=== PATIENT | male | born 1970 | race Caucasian/White ===

== ENCOUNTER 2020-05-03 09:28 | Outpatient (CLI) | payer BC, SELFPAY ==
[2020-05-03 10:17] LABS: Alanine Aminotransferase 44 U/L (4-50); Albumin Level 4.7 g/dL (3.5-5.1); Alkaline Phosphatase 79 U/L (38-126); Anion Gap 6 mmol/L (8-16); Aspartate Amino Transferase 38 U/L (17-59); Bilirubin,Total 0.5 mg/dL (0.2-1.3); Blood Urea Nitrogen 12 mg/dL (9-20); Calcium 9.3 mg/dL (8.4-10.2); Carbon Dioxide 27 mmol/L (22-30); Chloride 106 mmol/L (98-107); Cholesterol 200 mg/dL (0-200); Estimated Glomerular Filt Rate > 60; Glucose 110 mg/dL (75-110); HDL Direct 42 mg/dL; Potassium 4.4 mmol/L (3.4-5.0); Sodium 139 mmol/L (137-145); Triglycerides 183 mg/dL (<150)
[2020-05-03 10:29] LABS: LDL Cholesterol Direct 127 mg/dL
== END 2020-05-03 09:29 | disposition home or self-care (01) ==
PROVIDERS: PCP Internal Medicine; Visit Provider Internal Medicine
DX: E78.5 Hyperlipidemia, unspecified (principal)
CPT/HCPCS: 36415; 80053; 80061

== ENCOUNTER → 2020-11-19 02:29 | Outpatient (CLI) | payer BC, SELFPAY ==
[2020-11-19 20:47] LABS: SARS-CoV-2 RNA PCR Negative
== END ==
PROVIDERS: PCP Internal Medicine; Visit Provider Internal Medicine
DX: R68.89 Other general symptoms and signs (principal); Z20.822 Contact with and (suspected) exposure to COVID-19
CPT/HCPCS: C9803; U0003; U0005

== ENCOUNTER 2020-12-06 09:16 | Outpatient (CLI) | payer BC, SELFPAY ==
[2020-12-06 10:21] LABS: Alanine Aminotransferase 24 U/L (4-50); Albumin Level 4.8 g/dL (3.5-5.1); Alkaline Phosphatase 82 U/L (38-126); Anion Gap 10 mmol/L (8-16); Aspartate Amino Transferase 23 U/L (17-59); Bilirubin,Total 0.3 mg/dL (0.2-1.3); Blood Urea Nitrogen 17 mg/dL (9-20); Calcium 9.4 mg/dL (8.4-10.2); Carbon Dioxide 25 mmol/L (22-30); Chloride 102 mmol/L (98-107); Cholesterol 170 mg/dL (0-200); Estimated Glomerular Filt Rate > 60; Glucose 106 mg/dL (65-110); HDL Direct 52 mg/dL; Potassium 4.5 mmol/L (3.4-5.0); Sodium 137 mmol/L (137-145); Triglycerides 122 mg/dL (<150)
[2020-12-06 10:32] LABS: LDL Cholesterol Direct 106 mg/dL
== END 2020-12-06 09:17 | disposition home or self-care (01) ==
PROVIDERS: PCP Internal Medicine; Visit Provider Nurse Practitioner
DX: E78.5 Hyperlipidemia, unspecified (principal)
CPT/HCPCS: 36415; 80053; 80061

== ENCOUNTER → 2020-12-10 08:26 | Outpatient (CLI) | payer BC, SELFPAY ==
--- NOTE | ~2020-12-10 | XR_ITS ---
XR chest 2V DATE: 12/10/2020 08:39 INDICATION: Cough TECHNIQUE: 2 views COMPARISON: 07/24/2015 portable 05/28/2014 PA and lateral chest AP chest FINDINGS: Normal heart size. No hilar or mediastinal enlargement. No pulmonary infiltrate or consolidation, pleural effusion or pulmonary vascular congestion or pneumo thorax is detected. Mild degenerative change of the thoracic spine. IMPRESSION: No active cardiopulmonary disease Reviewed, dictated and finalized at location A.
== END ==
PROVIDERS: PCP Internal Medicine; Visit Provider Internal Medicine
DX: R05.9 Cough, unspecified (principal); M47.814 Spondylosis without myelopathy or radiculopathy, thoracic region
CPT/HCPCS: 71046

== ENCOUNTER 2021-12-31 08:56 | Outpatient (CLI) | payer BC, SELFPAY ==
[2021-12-31 09:26] LABS: Alanine Aminotransferase 28 U/L (6-50); Albumin Level 4.8 g/dL (3.5-5.1); Alkaline Phosphatase 87 U/L (38-126); Anion Gap 12 mmol/L (8-16); Aspartate Amino Transferase 25 U/L (17-59); Bilirubin,Total 0.5 mg/dL (0.2-1.3); Blood Urea Nitrogen 16 mg/dL (9-20); Carbon Dioxide 27 mmol/L (22-30); Chloride 101 mmol/L (98-107); Cholesterol 133 mg/dL (0-200); Estimated Glomerular Filt Rate > 60; Glucose 112 mg/dL (65-110); HDL Direct 39 mg/dL; Potassium 4.3 mmol/L (3.4-5.0); Sodium 140 mmol/L (137-145); Triglycerides 82 mg/dL (<150)
[2021-12-31 09:36] LABS: LDL Cholesterol Direct 68 mg/dL
[2021-12-31 10:13] LABS: Prostate Specific Antigen 0.5 ng/mL (< OR = 4.0)
== END 2021-12-31 08:57 | disposition home or self-care (01) ==
LOC: ANHLAB 08:57
PROVIDERS: PCP Internal Medicine; Visit Provider Internal Medicine
DX: E78.5 Hyperlipidemia, unspecified (principal); Z79.899 Other long term (current) drug therapy; Z12.5 Encounter for screening for malignant neoplasm of prostate
CPT/HCPCS: 36415; 80053; 80061; 84153; G0103

== ENCOUNTER 2022-02-09 00:44 | Day surgery (SDC) | payer BC, SELFPAY ==
[2022-01-23 15:04] VITALS: BMI 32.3
[2022-02-09 09:49] VITALS: BP 120/102; PULSE 74; RESP 18; TEMP 36.3; O2SAT 98
--- NOTE | 2022-02-09 09:49 | WPDANESEPPF ---
Anes - Initial Pre Proc Eval Procedure: Operation Date: 02/09/22 11:15 Proposed Procedures p Screening Colonoscopy - Dionisio Castano MD Date/Time: 02/09/22 09:49 Surgeon: Dionisio Castano MD Pre Op Diagnosis: neoplasm screening Patient Data Age: 51 Gender: M Height: 1.78 m Weight: 102.3 kg Allergies Allergy/AdvReac Type Severity Reaction Status Date / Time No Known Allergies Allergy Verified 02/09/22 09:47 Home Medications Medication Instructions Recorded Confirmed Type baclofen 10 mg tablet 10 mg PO QHS #90 tabs 06/27/21 01/23/22 Rx fluticasone propionate 50 2 spray intranasal DAILY #19.8 mL 06/27/21 01/23/22 Rx mcg/actuation nasal spray,suspension sildenafil 100 mg tablet 100 mg PO DAILY PRN sexual 06/27/21 01/23/22 Rx activity #30 tabs atorvastatin 20 mg tablet 20 mg PO DAILY #90 tabs 11/04/21 01/23/22 Rx albuterol sulfate 90 mcg/actuation 1 puff inhalation Q4H PRN 01/09/22 01/23/22 Rx aerosol inhaler shortness of breath or wheezing #8.5 grams escitalopram oxalate 20 mg tablet 20 mg PO DAILY #90 tabs 01/13/22 01/23/22 Rx (Lexapro) montelukast 10 mg tablet 10 mg PO DAILY #90 tabs 01/13/22 01/23/22 Rx Patient hx anesthesia problems: none Family hx anesthesia problems: none Results Review: All pre-operative results and documents have been reviewed as part of the pre-operative evaluation. [facility] Past Medical History Medical History (Updated 02/09/22 @ 09:49 by Adonis Roy MD) COVID-19 Metal plates in right arm Obesity Tobacco abuse Wrist fracture, right Surgical History Surgical History (Updated 02/09/22 @ 09:50 by Adonis Roy MD) H/O wrist surgery Social History Social History Years smoked: 26 Smoking status: Former smoker Tobacco type: cigarettes Second hand tobacco smoke exposure: No Alcohol intake: current Drinks per week: 4 Substance use: never Substance use type: does not use Lack of Transportation: No Lack of Food: Never True Current Housing: I Have Housing Concerned About Future Housing: No Difficulty Paying Gas/Electric Bills: No Difficulty Paying for Meds: No Currently Unemployed: No Education: Bachelor's Degree Difficulty w/ Childcare or Family Care: No Living arrangements: with family Spiritual care concerns: No Anes - Eval Final PreProcedure Day of Procedure 02/09/22 09:49 Patient weight: obese Heart: regular rate and rhythm Lungs: clear to auscultation Airway: Mallampati scale class II Neurological: alert and oriented Last oral intake: >/= 8 hours ASA classification: III Emergent: no Anesthetic plan: proceed Anesthesia type and monitoring: general GIVS and standard monitoring Results Review: All pre-operative results and documents have been reviewed as part of the pre-operative evaluation. Informed Consent: The patient's anesthetic plan and its attendant risks and benefits were discussed with the patient/family/POA. Questions were solicited and answers provided to the satisfaction of the patient/family/POA.
[2022-02-09] MEDS: LACTATED RINGERS 1,000 ML 150 ML IV CONT (09:57)
--- NOTE | 2022-02-09 10:40 | PM.HPGS ---
History of Present Illness History of Present Illness Consent: Risks, benefits, and alternatives have been discussed and questions answered. Patient agrees to proceed with procedure. Chief complaint: neoplasm screening Narrative: Darío Pollard is a 51 year old male here for first screening colonoscopy Review of Systems Constitutional: Constitutional: Denies headache(s) and Denies weakness Eyes: Eyes: Denies blurry vision ENT: Reports Normal hearing present, Denies headache(s) and Denies neck pain Cardiovascular: Cardiovascular: Denies chest pain and Denies dyspnea Respiratory: Respiratory: Denies dyspnea Gastrointestinal: Gastrointestinal: Reports no additional gastrointestinal complaints Genitourinary: Genitourinary: Denies dysuria Musculoskeletal: Musculoskeletal: Denies neck pain Integumentary/Breasts: Skin/Breast: Denies dry skin Neurologic: Reports Normal hearing present, Denies headache(s) and Denies weakness Psychiatric: Psychiatric: Denies anxiety Endocrine: Endocrine: Denies change in body appearance Hematologic/Lymphatic: Hematologic/Lymphatic: Denies easy bleeding Allergic/Immunologic: Allergic/Immunologic: Denies urticaria PMF Past Medical History Medical History (Updated 02/09/22 @ 10:41 by Dionisio Castano MD) Colon cancer screening COVID-19 Metal plates in right arm Obesity Tobacco abuse Wrist fracture, right Surgical History Surgical History (Updated 02/09/22 @ 09:50 by Adonis Roy MD) H/O wrist surgery Social History Social History Years smoked: 26 Smoking status: Former smoker Tobacco type: cigarettes Second hand tobacco smoke exposure: No Alcohol intake: current Drinks per week: 4 Substance use: never Substance use type: does not use Lack of Transportation: No Lack of Food: Never True Current Housing: I Have Housing Concerned About Future Housing: No Difficulty Paying Gas/Electric Bills: No Difficulty Paying for Meds: No Currently Unemployed: No Education: Bachelor's Degree Difficulty w/ Childcare or Family Care: No Living arrangements: with family Spiritual care concerns: No Meds Home Medications and Allergies Home Medications Medication Instructions Recorded Confirmed Type baclofen 10 mg tablet 10 mg PO QHS #90 tabs 06/27/21 01/23/22 Rx fluticasone propionate 50 2 spray intranasal DAILY #19.8 mL 06/27/21 01/23/22 Rx mcg/actuation nasal spray,suspension sildenafil 100 mg tablet 100 mg PO DAILY PRN sexual 06/27/21 01/23/22 Rx activity #30 tabs atorvastatin 20 mg tablet 20 mg PO DAILY #90 tabs 11/04/21 01/23/22 Rx albuterol sulfate 90 mcg/actuation 1 puff inhalation Q4H PRN 01/09/22 01/23/22 Rx aerosol inhaler shortness of breath or wheezing #8.5 grams escitalopram oxalate 20 mg tablet 20 mg PO DAILY #90 tabs 01/13/22 01/23/22 Rx (Lexapro) montelukast 10 mg tablet 10 mg PO DAILY #90 tabs 01/13/22 01/23/22 Rx Allergies Allergy/AdvReac Type Severity Reaction Status Date / Time No Known Allergies Allergy Verified 02/09/22 09:47 Vital Signs Vital Signs - 24 hr 02/09/22 09:49 Temperature 97.3 F L Pulse Rate 74 Respiratory Rate 18 Blood Pressure 120/102 H Pulse Oximetry 98 Oxygen Delivery Room Air Exam Const: General: comfortable and no acute distress HENMT: Face/Nose/Sinus: Normal nares present Eyes: General: appearance normal, both eyes and all related structures Neck: Neck: no JVD Resp: Auscultation: clear to auscultation bilaterally Cardio: Rate: regular rate Rhythm: regular rhythm GI: Inspection: non-distended GI Palp: Yes Soft to palpation Skin: General skin exam: normal color Neuro: General: gait normal Speech: normal speech Extrem: General: normal to inspection Psych: Mental Status: mental status grossly normal Assessment and Plan Assessment and plan (1) Colon cancer
[2022-02-09 11:05] VITALS: BP 138/82; PULSE 64; RESP 21; O2SAT 100
[2022-02-09 11:15] VITALS: BP 143/92; PULSE 61; RESP 17; O2SAT 100
[2022-02-09 11:25] VITALS: BP 135/98; PULSE 56; RESP 19; O2SAT 100
== END 2022-02-09 11:28 | disposition home or self-care (01) ==
PROVIDERS: PCP Internal Medicine; Visit Provider Internal Medicine Gastroenterology
PROC: 0DJD8ZZ Inspection of Lower Intestinal Tract, Via Natural or Artificial Opening Endoscopic (ICD-10-PCS; CPT 45378; principal; 2022-02-09 11:15)
DX: Z12.11 Encounter for screening for malignant neoplasm of colon (principal); D12.0 Benign neoplasm of cecum; K64.8 Other hemorrhoids; Z87.891 Personal history of nicotine dependence; E66.9 Obesity, unspecified; Z68.32 Body mass index [BMI] 32.0-32.9, adult; Z79.51 Long term (current) use of inhaled steroids
CPT/HCPCS: 45385; 88305; J2704; J7120

== ENCOUNTER 2022-08-14 08:08 | Outpatient (CLI) | payer BC, SELFPAY ==
--- NOTE | 2022-08-25 06:24 | WPDHOMESLEEP ---
Sleep Study - Home Unattended Date of Study: 08/14/22 Ordering Provider: Mariano Butler APN Interpreting Provider: Yoselin Son MD Home Sleep Study Type: Willian NATARAJAN Height: 1.78 m Weight: 108.862 kg Body Mass Index: 34.4 Neck Circumference (inches): 17 [place]: 8 Reason for Sleep Study Daytime hypersomnia Sleep History Darío Pollard is a 51-year-old male with history of depression and former tobacco use who underwent a home sleep study for evaluation of daytime hypersomnia and trouble sleeping despite using trazodone 50mg qHS. He never awakens from sleep short of breath. He rarely awakens at night with heartburn, belching or cough. He frequently snores and occasionally snores loudly enough for others to complain. He never wakes up gasping for breath during the night. He rarely has breathing problems at night. He never sweats excessively at night. He occasionally falls asleep during the day. He does not fall asleep involuntarily and never falls asleep while driving. He rarely notices his heart pounding or beating irregularly during the night. He never experiences loss of muscle tone with strong emotion. He rarely feels paralyzed on waking. He constantly experiences vivid dreams upon waking or falling asleep. He does not feel afraid of going to sleep. He never has nightmares. He rarely recalls his dreams. He constantly has thoughts racing through his mind. He frequently feels sad or depressed. He occasionally feels anxiety or worry about things. He never notices parts of his body jerk. He never kicks during the night. He occasionally feels crawling or aching feelings in his legs. He never feels leg pain at night. He does not grind his teeth during sleep and or wake with morning jaw pain. He occasionally feels bothered by pain during the day but is never awakened by pain during the night. He rarely wakes up feeling stiff in the morning and rarely wakes up feeling sore and achy in the morning with pain in his neck, spine, or joints. Normal bedtime is between 11pm and 12am on the weekdays and same on the weekends, usually falling asleep in 1 hour or longer. He typically gets about 5 to 6 hours of sleep per night. His wake-up time is around 5 to 6am on the weekdays and same on the weekends. He typically wakes up around 2 to 3 times per night and can be awake anywhere from 15 minutes to 1 hour. He will sometimes get up to use the bathroom and other times he just lays there trying to fall back to sleep. He takes naps in the afternoon or evening. Habits: Former tobacco smoker. Drinks about 3 caffeinated beverages per day. No alcohol or recreational substances. [facility] Past Medical History Medical History Colon cancer screening COVID-19 Metal plates in right arm Obesity Tobacco abuse Wrist fracture, right Surgical History Surgical History H/O wrist surgery Social History Social History Years smoked: 26 Smoking status: Former smoker Tobacco type: cigarettes Second hand tobacco smoke exposure: No Alcohol intake: current Drinks per week: 3 Alcohol use details: social Substance use: never Substance use type: does not use Lack of Transportation: No Lack of Food: Never True Current Housing: I Have Housing Concerned About Future Housing: No Difficulty Paying Gas/Electric Bills: No Difficulty Paying for Meds: No Currently Unemployed: No Education: Bachelor's Degree Difficulty w/ Childcare or Family Care: No Living arrangements: with family Spiritual care concerns: No Medications Home Medications Medication Instructions Recorded Confirmed Type albuterol sulfate 90 mcg/actuation 1 puff inhalation Q4H PRN 06/25/22 07/17/22 Rx aerosol inhaler shortness of breath or wheezing #8.5 grams atorvastatin 20 mg tablet 2
[2022-08-25 06:30] VITALS: BMI 34.4
== END 2022-08-17 12:21 | disposition home or self-care (01) ==
LOC: ANHCSM 08:09
PROVIDERS: PCP Family Medicine; Visit Provider Nurse Practitioner
DX: R53.83 Other fatigue (principal); G47.9 Sleep disorder, unspecified; G47.33 Obstructive sleep apnea (adult) (pediatric)
CPT/HCPCS: 95800

== ENCOUNTER 2022-08-14 11:20 | Outpatient (CLI) | payer BC, SELFPAY ==
[2022-08-14 12:13] LABS: Alanine Aminotransferase 38 U/L (6-50); Alkaline Phosphatase 80 U/L (38-126); Anion Gap 10 mmol/L (8-16); Aspartate Amino Transferase 34 U/L (17-59); Bilirubin,Total 0.7 mg/dL (0.2-1.3); Blood Urea Nitrogen 16 mg/dL (9-20); Calcium 8.9 mg/dL (8.4-10.2); Carbon Dioxide 29 mmol/L (22-30); Chloride 99 mmol/L (98-107); Cholesterol 161 mg/dL (0-200); Estimated Glomerular Filt Rate > 60; Glucose 95 mg/dL (65-110); HDL Direct 45 mg/dL; Potassium 4.3 mmol/L (3.4-5.0); Sodium 138 mmol/L (137-145); Triglycerides 129 mg/dL (<150)
[2022-08-14 12:24] LABS: LDL Cholesterol Direct 87 mg/dL
[2022-08-14 13:29] LABS: Hemoglobin A1C 5.7 % (<5.7)
== END 2022-08-14 11:21 | disposition home or self-care (01) ==
LOC: ANHLAB 11:21
PROVIDERS: PCP Family Medicine; Visit Provider Nurse Practitioner
DX: R73.01 Impaired fasting glucose (principal); E78.5 Hyperlipidemia, unspecified; Z79.899 Other long term (current) drug therapy
CPT/HCPCS: 36415; 80053; 80061; 83036

== ENCOUNTER 2022-12-01 11:28 | Outpatient (CLI) | payer BC, SELFPAY ==
[2022-12-04 17:55] LABS: Testosterone Free 68.9 pg/mL (35.0-155.0); Testosterone Total 453 ng/dL (250-1100)
== END 2022-12-01 11:29 | disposition home or self-care (01) ==
LOC: ANHLAB 11:30
PROVIDERS: PCP Family Medicine; Visit Provider Nurse Practitioner
DX: R53.83 Other fatigue (principal); N52.9 Male erectile dysfunction, unspecified; R63.5 Abnormal weight gain
CPT/HCPCS: 36415; 84402; 84403

== ENCOUNTER 2023-03-17 09:30 | Outpatient (CLI) | payer BC, SELFPAY ==
--- NOTE | 2023-03-17 11:00 | NEURO_ITS ---
Impression: # Complains of pain and numbness of hands. # Mild bilateral Carpal Tunnel Syndrome, left more than right. # No ulnar neuropathy. # Normal needle/EMG exam. Nerve Conduction Studies Anti Sensory Summary Table Stim Site NR Peak (ms) P-T Amp (?V) Site1 Site2 Delta-P (ms) Dist (cm) Oscar (m/s) Left Median Anti Sensory (2-3nd Digit) Wrist 3.9 33.6 Wrist 2-3nd Digit 3.9 14.0 36 Wrist 4.1 20.7 Wrist 2-3nd Digit 3.9 14.0 36 Right Median Anti Sensory (2-3nd Digit) Wrist 3.5 18.4 Wrist 2-3nd Digit 3.5 14.0 40 Wrist 3.7 22.7 Wrist 2-3nd Digit 3.5 14.0 40 Left Radial Anti Sensory (Base 1st Digit) Wrist 1.9 31.2 Wrist Base 1st Digit 1.9 0.0 Right Radial Anti Sensory (Base 1st Digit) Wrist 2.3 21.2 Wrist Base 1st Digit 2.3 0.0 Left Ulnar Anti Sensory (5th Digit) Wrist 2.2 51.9 Wrist 5th Digit 2.2 14.0 64 Right Ulnar Anti Sensory (5th Digit) Wrist 2.1 39.9 Wrist 5th Digit 2.1 14.0 67 Motor Summary Table Stim Site NR Onset (ms) O-P Amp (mV) Site1 Site2 Delta-0 (ms) Dist (cm) Oscar (m/s) Left Median Motor (Abd Poll Brev) Wrist 4.2 3.9 Elbow Wrist 5.1 29.0 57 Elbow 9.3 2.6 Right Median Motor (Abd Poll Brev) Wrist 3.8 6.3 Elbow Wrist 4.7 28.0 60 Elbow 8.5 5.5 Left Ulnar Motor (Abd Dig Minimi) Wrist 2.1 9.5 A Elbow Wrist 5.3 31.0 58 A Elbow 7.4 8.2 Right Ulnar Motor (Abd Dig Minimi) Wrist 2.0 9.9 A Elbow Wrist 5.0 29.0 58 A Elbow 7.0 8.6 F Wave Studies NR F-Lat (ms) L-R F-Lat (ms) Left Median (Mrkrs) (Abd Poll Brev) 30.26 0.48 Right Median (Mrkrs) (Abd Poll Brev) 29.78 0.48 Left Ulnar (Mrkrs) (Abd Dig Min) 29.53 1.31 Right Ulnar (Mrkrs) (Abd Dig Min) 28.22 1.31 EMG Side Muscle Nerve Root Ins Act Fibs Amp Dur Recrt Comment Right 1stDorInt Ulnar C8-T1 Nml Nml Nml Nml Nml Right Ext Indicis Radial (Post Int) C7-8 Nml Nml Nml Nml Nml Right Ext Digitorum Radial (Post Int) C7-8 Nml Nml Nml Nml Nml Right BrachioRad Radial C5-6 Nml Nml Nml Nml Nml Right PronatorTeres Median C6-7 Nml Nml Nml Nml Nml Right Abd Poll Brev Median C8-T1 Nml Nml Nml Nml Nml Left 1stDorInt Ulnar C8-T1 Nml Nml Nml Nml Nml Left Ext Indicis Radial (Post Int) C7-8 Nml Nml Nml Nml Nml Left Ext Digitorum Radial (Post Int) C7-8 Nml Nml Nml Nml Nml Left BrachioRad Radial C5-6 Nml Nml Nml Nml Nml Left PronatorTeres Median C6-7 Nml Nml Nml Nml Nml Left Abd Poll Brev Median C8-T1 Nml Nml Nml Nml Nml MTDD
== END 2023-03-17 09:31 | disposition home or self-care (01) ==
LOC: ANHNEURO 09:32
PROVIDERS: PCP Family Medicine; Visit Provider Nurse Practitioner
DX: R20.2 Paresthesia of skin (principal); G56.03 Carpal tunnel syndrome, bilateral upper limbs
CPT/HCPCS: 95886; 95911

== ENCOUNTER 2023-05-06 00:17 | Day surgery (SDC) | payer BC, SELFPAY ==
[2023-04-29 13:32] VITALS: BMI 37.3
--- NOTE | 2023-04-29 14:02 | PC.NURSE ---
Report to the Outpatient Waiting Room, entrance under the green pavilion located off [facility], at time _0600 on date _ 05/06/23 . Planned Procedure Time: __729 . Time changes happen often and if your time is changed the preop area will call you the afternoon before. - You and your visitor will be asked to self-screen and do not enter if you have any COVID symptoms. - A mask is optional within the hospital at this time. - No food or drink for 8 hours prior to time of surgery Take the following medications with a SIP of water the morning of surgery: ____none(pt takes all meds at night) DO NOT STOP ANY OF YOUR OTHER PRESCRIPTION MEDICATIONS PRIOR TO SURGERY ?EXCEPT THE FOLLOWING Medications to discontinue per physician Meloxicam Date to take last dose____consult with Dr. Gray Please no make-up, nail irish, hairspray, perfume, deodorant, or body powder the day of surgery. No jewelry (including any body piercings) or valuables the day of surgery, leave them at home. Please take a shower or bath the night before, or the morning of, surgery with an antibacterial soap. Wear comfortable, loose fitting clothing. Children are encouraged to wear pajamas. - Jewelry must be removed prior to entering the operating room. Rings and piercings that are not removed may be cut off. - The hospital will not accept responsibility for valuables. - Please leave all valuables, including medications, at home the day of surgery. If you are going home after surgery, a licensed taxi cab driver must drive you home. - NO public transportation without another adult if you receive anesthesia. - We recommend that an adult stay with you for 24 hours following discharge. - We also recommend that you do not drive, make important decision, drink alcoholic beverages, or take any drugs that were not prescribed by your health care provider for at least 24 hours after your discharge time. Follow any additional instructions given to you from your surgeon. If you or anyone in your household have experienced Covid symptoms in the past week, please notify your surgeon or the nurse liaison at the phone number below for possible testing. Telephone instructions given to Darío and asked if any additional questions and then verbalized understanding. Patient advised to call surgeon office or pre surgery nurse liaison [phone] if any additional questions.
[2023-05-06 06:20] VITALS: BP 138/91; PULSE 69; RESP 16; TEMP 36.2; O2SAT 96
[2023-05-06] MEDS: LACTATED RINGERS 1,000 ML 30 ML IV CONT (06:30)
--- NOTE | 2023-05-06 06:46 | WPDANESEPPF ---
Anes - Initial Pre Proc Eval Procedure: Operation Date: 05/06/23 07:30 Proposed Procedures p Right Endoscopic Carpal Tunnel Release, Possible Open - Subhash Gray MD Date/Time: 05/06/23 06:46 Surgeon: Subhash Gray MD Pre Op Diagnosis: right carpal tunnel syndrome Patient Data Age: 52 Gender: M Height: 1.78 m Weight: 118 kg Allergies Allergy/AdvReac Type Severity Reaction Status Date / Time No Known Allergies Allergy Verified 03/30/23 09:13 Home Medications Medication Instructions Recorded Confirmed Type sildenafil 100 mg tablet 100 mg PO DAILY PRN sexual 07/03/22 04/29/23 Rx activity #30 tabs albuterol sulfate 90 mcg/actuation 1 puff inhalation Q4H PRN 09/24/22 04/29/23 Rx aerosol inhaler shortness of breath or wheezing #8.5 grams meloxicam 15 mg tablet 15 mg PO DAILY #90 tabs 09/24/22 04/29/23 Rx fluticasone propionate 50 2 spray intranasal DAILY #19.8 mL 09/29/22 04/29/23 Rx mcg/actuation nasal spray,suspension levocetirizine 5 mg tablet (Xyzal) 5 mg PO DAILY 02/03/23 04/29/23 History escitalopram oxalate 20 mg tablet 20 mg PO DAILY #90 tabs 03/05/23 04/29/23 Rx (Lexapro) montelukast 10 mg tablet 10 mg PO DAILY #90 tabs 03/05/23 04/29/23 Rx atorvastatin 20 mg tablet 20 mg PO DAILY #90 tabs 04/30/23 Rx trazodone 50 mg tablet 50 mg PO QHS #90 tabs 04/30/23 Rx Patient hx anesthesia problems: none Family hx anesthesia problems: none Results Review: All pre-operative results and documents have been reviewed as part of the pre-operative evaluation. [facility] Past Medical History Medical History Colon cancer screening COVID-19 Metal plates in right arm Obesity Tobacco abuse Wrist fracture, right Surgical History Surgical History H/O wrist surgery Social History Social History Years smoked: 28 Smoking status: Former smoker Tobacco type: cigarettes Second hand tobacco smoke exposure: No Alcohol intake: current Drinks per week: 3 Alcohol use details: social Substance use: never Substance use type: does not use Last use: 2020 Do You Feel Safe in your Home?: Yes Lack of Transportation: No Lack of Food: Never True Current Housing: I Have Housing Concerned About Future Housing: No Difficulty Paying Gas/Electric Bills: No Difficulty Paying for Meds: No Currently Unemployed: No Education: Bachelor's Degree Difficulty w/ Childcare or Family Care: No Living arrangements: with family Spiritual care concerns: No Anes - Eval Final PreProcedure Day of Procedure 05/06/23 06:46 Patient weight: obese Heart: regular rate and rhythm Lungs: clear to auscultation Airway: Mallampati scale class II Neurological: alert and oriented Last oral intake: >/= 8 hours ASA classification: III Emergent: no Anesthetic plan: proceed Anesthesia type and monitoring: general GIVS and standard monitoring Results Review: All pre-operative results and documents have been reviewed as part of the pre-operative evaluation. Informed Consent: The patient's anesthetic plan and its attendant risks and benefits were discussed with the patient/family/POA. Questions were solicited and answers provided to the satisfaction of the patient/family/POA.
--- NOTE | 2023-05-06 07:10 | PM.HPGS ---
History of Present Illness History of Present Illness Chief complaint: right carpal tunnel syndrome Narrative: Patient seen and examined in pre-operative holding area. No interval change in medical history or symptoms. Patient recalls previous discussion of benefits and alternatives to procedure. Continues to desire to proceed with right endoscopic possible open carpal tunnel release. Reviewed procedure, post-op expectations and risks including but not limited to bleeding, infection, injury to tendon/nerve/vessel, decreased hand function, stiffness, RSD, no change or worsening of symptoms. I discussed the possible use of assistants and their participation in the case. Patient stated understanding and signed the consent form wishing to proceed. Review of Systems Review of Systems: All systems reviewed & are unremarkable except as noted in HPI and below PMFSH Past Medical History Medical History Colon cancer screening COVID-19 Metal plates in right arm Obesity Tobacco abuse Wrist fracture, right Surgical History Surgical History H/O wrist surgery Social History Social History Years smoked: 28 Smoking status: Former smoker Tobacco type: cigarettes Second hand tobacco smoke exposure: No Alcohol intake: current Drinks per week: 3 Alcohol use details: social Substance use: never Substance use type: does not use Last use: 2020 Do You Feel Safe in your Home?: Yes Lack of Transportation: No Lack of Food: Never True Current Housing: I Have Housing Concerned About Future Housing: No Difficulty Paying Gas/Electric Bills: No Difficulty Paying for Meds: No Currently Unemployed: No Education: Bachelor's Degree Difficulty w/ Childcare or Family Care: No Living arrangements: with family Spiritual care concerns: No Meds Home Medications and Allergies Home Medications Medication Instructions Recorded Confirmed Type sildenafil 100 mg tablet 100 mg PO DAILY PRN sexual 07/03/22 04/29/23 Rx activity #30 tabs albuterol sulfate 90 mcg/actuation 1 puff inhalation Q4H PRN 09/24/22 04/29/23 Rx aerosol inhaler shortness of breath or wheezing #8.5 grams meloxicam 15 mg tablet 15 mg PO DAILY #90 tabs 09/24/22 04/29/23 Rx fluticasone propionate 50 2 spray intranasal DAILY #19.8 mL 09/29/22 04/29/23 Rx mcg/actuation nasal spray,suspension levocetirizine 5 mg tablet (Xyzal) 5 mg PO DAILY 02/03/23 04/29/23 History escitalopram oxalate 20 mg tablet 20 mg PO DAILY #90 tabs 03/05/23 04/29/23 Rx (Lexapro) montelukast 10 mg tablet 10 mg PO DAILY #90 tabs 03/05/23 04/29/23 Rx atorvastatin 20 mg tablet 20 mg PO DAILY #90 tabs 04/30/23 Rx trazodone 50 mg tablet 50 mg PO QHS #90 tabs 04/30/23 Rx tramadol 50 mg tablet 50 mg PO Q6H PRN pain #12 tabs 05/06/23 Rx Allergies Allergy/AdvReac Type Severity Reaction Status Date / Time No Known Allergies Allergy Verified 03/30/23 09:13 Exam Narrative: unchnaged Assessment and Plan Assessment and plan (1) Carpal tunnel syndrome on both sides: Code(s): G56.03 - Carpal tunnel syndrome, bilateral upper limbs Status: Acute Assessment and Plan: as above
--- NOTE | 2023-05-06 07:11 | P.OP_ITS ---
Procedure Note - Detailed Date of Procedure 05/06/23 Pre-op Diagnosis right carpal tunnel syndrome Post-op Diagnosis Same Procedure Performed right ectr Surgeon Subhash Gray MD Flexographic Press Operator Rosy Mcneill PA-C Anesthesia MAC Description of Procedure INFORMED CONSENT: The patient was seen and examined and marked in the pre-op area.? The patient signed the consent form. PROCEDURE IN DETAIL:The patient taken back to OR on the stretcher in supine position. Time out performed with anesthesia, surgeon and staff agreeing on patient's name site and surgery to be performed SCDs were placed on the lower extremities and inflated. A tourniquet was placed on {right} upper extremity and antibiotics given IV After anesthesia administered sedation I injected {5}cc 1%lido with epi and 0.5% marcaine plain at the operative site The?{right upper extremity}?was prepped and draped in sterile fashion the??{right upper extremity} was? exsanguinated with Esmarch bandage and tourniquet inflated to 250mmHg I made a transverse incision in the {right} volar distal wrist crease through skin and dermis with 15 blade scalpel.? Littler scissors spread down to antebrachial fascia. A small incision was made in antebrachial fascia allowing access to Carpal tunnel. I proceeded with sequential dilation staying in line with the ring finger and hugging the hook of the hamate.? I then used the synovial elevator to free any adhesions from the underside of the transverse carpal ligament. Next I was able to insert the Microaire endoscopic carpal tunnel device with direct visualization of the transverse fibers on the monitor and proceeded with complete segmental retrograde release of the ligament in its entirety.? I irrigated with normal saline and closed with 4-0 monocryl for dermis and subcuticular closure. A dressing of Dermabond, 4x4, hector, and a volar splint was applied for patient safety, security, and comfort and secured with an michel bandage after the tourniquet was let down noting the hand was warm and well perfused. The patient was then awaken from anesthesia and transferred to the recovery room in stable condition.? Complications - none EBL- 0cc Disposition - home in stable conditions Rosy Mcneill PA-C was essential for positioning, retraction, closure and dressing placement [facility] Billing Surgery - Charge Forward: Surgery Billing ([id number] for rosy)
[2023-05-06] MEDS: ceFAZolin 2 GM/D5W 50 ML 2 GM/50 ML BAG IVPB (07:29)
[2023-05-06] MEDS: LIDO 1%/EPINEPHRINE 1:100,000 50 ML VIAL 8 ML INFILTRATE (07:40)
[2023-05-06 07:52] VITALS: BP 116/74; PULSE 72; RESP 14; O2SAT 96
[2023-05-06 08:15] VITALS: BP 121/77; PULSE 70; RESP 14; O2SAT 94
[2023-05-06 08:35] VITALS: BP 114/72; PULSE 63; RESP 14
== END 2023-05-06 08:41 | disposition home or self-care (01) ==
PROVIDERS: PCP Family Medicine; Visit Provider Plastic Surgery
PROC: 01N54ZZ Release Median Nerve, Percutaneous Endoscopic Approach (ICD-10-PCS; CPT 29848; principal; 2023-05-06 07:30)
DX: G56.01 Carpal tunnel syndrome, right upper limb (principal); Z79.51 Long term (current) use of inhaled steroids; E66.9 Obesity, unspecified; Z68.37 Body mass index [BMI] 37.0-37.9, adult; Z87.891 Personal history of nicotine dependence
CPT/HCPCS: 29848; J0690; J2250; J2704; J3010; J7120

== ENCOUNTER 2023-06-17 01:32 | Day surgery (SDC) | payer BC, SELFPAY ==
--- NOTE | 2023-06-08 12:59 | PC.NURSE ---
Report to the Outpatient Waiting Room, entrance under the green pavilion located off [facility], at time 1100 on date 06/17/23. Planned Procedure Time: 1300. Time changes happen often and if your time is changed the preop area will call you the afternoon before. - You and your visitor will be asked to self-screen and do not enter if you have any COVID symptoms. - A mask is optional within the hospital at this time. Patients may have clear liquids (water, carbonated beverages, clear teas, apple juice) until 3 hours prior to surgery with a maximum of 20 ounces. - No food from midnight until time of surgery Take the following medications with a SIP of water the morning of surgery: NONE DO NOT STOP ANY OF YOUR OTHER PRESCRIPTION MEDICATIONS PRIOR TO SURGERY ?EXCEPT THE FOLLOWING Medications to discontinue per physician: MELOXICAM Date to take last dose: PER DR. LANDEROS Please no make-up, nail french, hairspray, perfume, deodorant, or body powder the day of surgery. No jewelry (including any body piercings) or valuables the day of surgery, leave them at home. Please take a shower or bath the night before, or the morning of, surgery with an antibacterial soap. Wear comfortable, loose fitting clothing. - Jewelry must be removed prior to entering the operating room. Rings and piercings that are not removed may be cut off. - The hospital will not accept responsibility for valuables. - Please leave all valuables, including medications, at home the day of surgery. If you are going home after surgery, a licensed peg driver must drive you home. - NO public transportation without another adult if you receive anesthesia. - We recommend that an adult stay with you for 24 hours following discharge. - We also recommend that you do not drive, make important decision, drink alcoholic beverages, or take any drugs that were not prescribed by your health care provider for at least 24 hours after your discharge time. Follow any additional instructions given to you from your surgeon. If you or anyone in your household have experienced Covid symptoms in the past week, please notify your surgeon or the nurse liaison at the phone number below for possible testing. Telephone instructions given to MITCHEL BUSTOS and asked if any additional questions and then verbalized understanding. Patient advised to call surgeon office or pre surgery nurse liaison [phone] if any additional questions.
[2023-06-08 13:01] VITALS: BMI 37.2
--- NOTE | 2023-06-17 07:09 | WPDHPUPDATE1 ---
History and Physical Update Update Date/Time: 06/17/23 07:09 Patient seen and examined in pre-operative holding area. No interval change in medical history or symptoms. Patient recalls previous discussion of benefits and alternatives to procedure. Continues to desire to proceed with left endoscopic possible open carpal tunnel release. Reviewed procedure, post-op expectations and risks including but not limited to bleeding, infection, injury to tendon/nerve/vessel, decreased hand function, stiffness, RSD, no change or worsening of symptoms. I discussed the possible use of assistants and their participation in the case. Patient stated understanding and signed the consent form wishing to proceed.
--- NOTE | 2023-06-17 07:10 | W.PM.PROC2 ---
Procedure Note - Detailed Date of Procedure 06/17/23 Pre-op Diagnosis Left Carpal Tunnel Syndrome Post-op Diagnosis Same Procedure Performed left ectr Surgeon Subhash Gray MD Anesthesia MAC Description of Procedure INFORMED CONSENT: The patient was seen and examined and marked in the pre-op area.? The patient signed the consent form. PROCEDURE IN DETAIL:The patient taken back to OR on the stretcher in supine position. Time out performed with anesthesia, surgeon and staff agreeing on patient's name site and surgery to be performed SCDs were placed on the lower extremities and inflated. A tourniquet was placed on {right} upper extremity and antibiotics given IV After anesthesia administered sedation I injected {4}cc 1%lido with epi and 0.5% marcaine plain at the operative site The?{left upper extremity}?was prepped and draped in sterile fashion the??{left upper extremity} was? exsanguinated with Esmarch bandage and tourniquet inflated to 250mmHg I made a transverse incision in the {left} volar distal wrist crease through skin and dermis with 15 blade scalpel.? Littler scissors spread down to antebrachial fascia. A small incision was made in antebrachial fascia allowing access to Carpal tunnel. I proceeded with sequential dilation staying in line with the ring finger and hugging the hook of the hamate.? I then used the synovial elevator to free any adhesions from the underside of the transverse carpal ligament. Next I was able to insert the Microaire endoscopic carpal tunnel device with direct visualization of the transverse fibers on the monitor and proceeded with complete segmental retrograde release of the ligament in its entirety.? I irrigated with normal saline and closed with 4-0 monocryl for dermis and subcuticular closure. A dressing of Dermabond, 4x4, hector, and a volar splint was applied for patient safety, security, and comfort and secured with an michel bandage after the tourniquet was let down noting the hand was warm and well perfused. The patient was then awaken from anesthesia and transferred to the recovery room in stable condition.? Complications - none EBL- 0cc Disposition - home in stable conditions [facility] Billing Surgery - Charge Forward: Surgery Billing ([id number] )
[2023-06-17 11:51] VITALS: BP 145/91; PULSE 71; RESP 16; TEMP 36.4; O2SAT 96
[2023-06-17] MEDS: LACTATED RINGERS 1,000 ML 30 ML IV CONT (12:10)
--- NOTE | 2023-06-17 13:34 | WPDANESEPPF ---
Anes - Initial Pre Proc Eval Procedure: Operation Date: 06/17/23 14:00 Proposed Procedures p Left Endoscopic Carpal Tunnel Release, Possible Open - Subhsah Gray MD Date/Time: 06/17/23 13:34 Surgeon: Subhash Gray MD Pre Op Diagnosis: Left Carpal Tunnel Syndrome Patient Data Age: 52 Gender: M Height: 1.78 m Weight: 116.5 kg Last Vital Signs Temp 97.5 F L 06/17/23 11:51 Pulse 71 06/17/23 11:51 Resp 16 06/17/23 11:51 BP 145/91 H 06/17/23 11:51 Pulse Ox 96 06/17/23 11:51 O2 Del Method Room Air 06/17/23 11:51 Allergies Allergy/AdvReac Type Severity Reaction Status Date / Time No Known Allergies Allergy Verified 06/17/23 11:44 Home Medications Medication Instructions Recorded Confirmed Type sildenafil 100 mg tablet 100 mg PO DAILY PRN sexual 07/03/22 06/08/23 Rx activity #30 tabs albuterol sulfate 90 mcg/actuation 1 puff inhalation Q4H PRN 09/24/22 06/08/23 Rx aerosol inhaler shortness of breath or wheezing #8.5 grams meloxicam 15 mg tablet 15 mg PO DAILY #90 tabs 09/24/22 06/08/23 Rx fluticasone propionate 50 2 spray intranasal DAILY #19.8 mL 09/29/22 06/08/23 Rx mcg/actuation nasal spray,suspension levocetirizine 5 mg tablet (Xyzal) 5 mg PO DAILY 02/03/23 06/08/23 History escitalopram oxalate 20 mg tablet 20 mg PO DAILY #90 tabs 03/05/23 06/08/23 Rx (Lexapro) montelukast 10 mg tablet 10 mg PO DAILY #90 tabs 03/05/23 06/08/23 Rx atorvastatin 20 mg tablet 20 mg PO DAILY #90 tabs 04/30/23 06/08/23 Rx trazodone 50 mg tablet 50 mg PO QHS #90 tabs 04/30/23 06/08/23 Rx tramadol 50 mg tablet 50 mg PO Q6H PRN pain #8 tabs 06/17/23 Rx Patient hx anesthesia problems: none Family hx anesthesia problems: none Results Review: All pre-operative results and documents have been reviewed as part of the pre-operative evaluation. [facility] Past Medical History Medical History Colon cancer screening COVID-19 Metal plates in right arm Obesity Tobacco abuse Wrist fracture, right Surgical History Surgical History H/O wrist surgery Social History Social History Smoking packs per day: 0.5 Smoking cigarettes per day: 10.0 Years smoked: 28 Smoking pack-years: 14.00 Smoking status: Former smoker Tobacco type: cigarettes Second hand tobacco smoke exposure: No Smoking end date: 03/08/20 Alcohol intake: current Drinks per week: 3 Alcohol use details: social Substance use: never Substance use type: does not use Last use: 2020 Do You Feel Safe in your Home?: Yes Lack of Transportation: No Lack of Food: Never True Current Housing: I Have Housing Concerned About Future Housing: No Difficulty Paying Gas/Electric Bills: No Difficulty Paying for Meds: No Currently Unemployed: No Education: Bachelor's Degree Difficulty w/ Childcare or Family Care: No Living arrangements: with family Spiritual care concerns: No Anes - Eval Final PreProcedure Day of Procedure 06/17/23 13:34 Patient weight: obese Heart: regular rate and rhythm Lungs: clear to auscultation Airway: Mallampati scale Neurological: alert and oriented Last oral intake: >/= 8 hours ASA classification: II Emergent: no Anesthetic plan: proceed Anesthesia type and monitoring: general GIVS and standard monitoring Results Review: All pre-operative results and documents have been reviewed as part of the pre-operative evaluation. Informed Consent: The patient's anesthetic plan and its attendant risks and benefits were discussed with the patient/family/POA. Questions were solicited and answers provided to the satisfaction of the patient/family/POA.
[2023-06-17] MEDS: ceFAZolin 2 GM/D5W 50 ML 2 GM/50 ML BAG IVPB (13:53)
[2023-06-17] MEDS: LIDO 1%/EPINEPHRINE 1:100,000 50 ML VIAL INFILTRATE (13:57)
[2023-06-17 14:15] VITALS: BP 113/62; PULSE 65; RESP 16
[2023-06-17 14:45] VITALS: BP 124/78; PULSE 63; RESP 16
[2023-06-17 15:15] VITALS: BP 130/89; PULSE 67; RESP 18
== END 2023-06-17 15:24 | disposition home or self-care (01) ==
PROVIDERS: PCP Family Medicine; Visit Provider Plastic Surgery
PROC: 01N54ZZ Release Median Nerve, Percutaneous Endoscopic Approach (ICD-10-PCS; CPT 29848; principal; 2023-06-17 14:00)
DX: G56.02 Carpal tunnel syndrome, left upper limb (principal); Z79.51 Long term (current) use of inhaled steroids; Z87.891 Personal history of nicotine dependence; E66.9 Obesity, unspecified; Z68.36 Body mass index [BMI] 36.0-36.9, adult
CPT/HCPCS: 29848; J0690; J2250; J2704; J3010; J7120

== ENCOUNTER 2023-11-09 08:31 | Outpatient (CLI) | payer BC, SELFPAY | END 2023-11-09 08:32 | disposition home or self-care (01) | LOC: ANHBWCAUD 08:32 | PROVIDERS: PCP Family Medicine; Visit Provider Family Medicine | DX: H90.3 Sensorineural hearing loss, bilateral (principal); H93.13 Tinnitus, bilateral; H61.21 Impacted cerumen, right ear; H73.893 Other specified disorders of tympanic membrane, bilateral | CPT/HCPCS: 92557; 92567 ==

== ENCOUNTER 2024-09-28 07:49 | Outpatient (CLI) | payer BC, SELFPAY ==
--- OUTSIDE RECORDS SUMMARY | 2024-09-28 07:53 | XMS_ITS | Clinical Summary ---
Author Organization [facility] Address [address] [place] [address] Phone Care Team Providers Care Bulk Plant Operator Name Role Phone Brice Adams MD Primary Care Provider [phone] Allergies No known active allergies Medications loratadine (CLARITIN) 10 mg tablet Take 10 mg by mouth daily. Active fluticasone propionate (FLONASE) 50 mcg/spray [place], Suspension nasal inhaler Administer 2 Sprays in each nostril daily. Active predniSONE (DELTASONE) 20 mg tablet 2 tabs po daily x 4 days 8 Tablet None 0 Active Social History Tobacco Use Types Packs/Day Years Used Date Smoking Tobacco: Every Day Cigarettes Alcohol Use Standard Drinks/Week Comments Yes 0 (1 standard drink = 0.6 oz pur e alcohol) social Sex and Gender Information Value Date Recorded Sex Assigned at Not on file Legal Sex Male 9:07 AM CDT Gender Identity Not on file Sexual Orientation Not on file Last Filed Vital Signs Vital Sign Reading Time Taken Comments Blood Pressure 133/88 09/30/2019 9:58 AM CDT Pulse - - Temperature 36.8 C (98.2 F) 09/30/2019 9:10 AM CDT Respiratory Rate 14 09/30/2019 9:10 AM CDT Oxygen Saturation 98% 09/30/2019 9:10 AM CDT Inhaled Oxygen Concentration - - Weight 104.3 kg (230 lb) 09/30/2019 9:10 AM CDT Height 180.3 cm (5' 11) 09/30/2019 9:10 AM CDT Body Mass Index 32.08 09/30/2019 9:10 AM CDT Plan of Treatment Health Maintenance Due Date Last Done Comments DTAP/TDAP/TD VACCINES (1 - Tdap) 10/10/1991 HEPATITIS B VACCINES (1 of 3 - 19+ 3-dose series) 06/1991 COLORECTAL SCREENING 2017 Colorectal Cancer Screening 2017 FIT-DNA Q 3 years 2017 FIT/FOBT Q 1 year 2017 Flex Sig/CT Colonography Q 5 years 2017 ZOSTER VACCINE (1 of 2) 2022 INFLUENZA VACCINE (#1) 2024 Care Teams Bulk Plant Operator Relationship Specialty Start Date End Date Brice Adams MD [address] [place] [phone] PCP - General Family Practice 09/30/19
[2024-09-28 08:11] LABS: Hematocrit 41.8 % (42.0-52.0); Hemoglobin 13.8 g/dL (14.0-18.0); Immature Granulocyte Percent A 0.7 % (0-0.5); Lymphocytes Absolute Auto 1.62 K/mm3 (0.9-3.2); Mean Corpuscular HGB Conc 33.0 g/dl (32-36); Mean Corpuscular Hemoglobin 29.9 pg (26-34); Mean Corpuscular Volume 90.7 fl (80-100); Nucleated Red Blood Cells Absolute Auto 0.000 K/mm3 (0.0-0.012); Nucleated Red Blood Cells Perc 0.0 % (0.0-0.2); Platelet Count Result 222 k/mm3 (150-375); Red Blood Count 4.61 M/mm3 (4.6-6.20); White Blood Count 8.5 K/mm3 (4.5-10.0)
[2024-09-28 08:32] LABS: Alanine Aminotransferase 28 U/L (6-50); Albumin Level 4.5 g/dL (3.5-5.1); Alkaline Phosphatase 75 U/L (38-126); Anion Gap 8 mmol/L (4-12); Aspartate Amino Transferase 28 U/L (17-59); Bilirubin,Total 0.4 mg/dL (0.2-1.3); Blood Urea Nitrogen 13 mg/dL (9-20); Calcium 9.4 mg/dL (8.4-10.2); Carbon Dioxide 28 mmol/L (22-30); Chloride 102 mmol/L (98-107); Cholesterol 148 mg/dL (0-200); Estimated Glomerular Filt Rate > 60; Glucose 99 mg/dL (65-110); HDL Direct 40 mg/dL; Potassium 4.3 mmol/L (3.4-5.0); Sodium 138 mmol/L (137-145); Total Protein 7.9 g/dL (6.3-8.2); Triglycerides 119 mg/dL (<150)
[2024-09-28 09:08] LABS: Prostate Specific Antigen 0.5 ng/mL (< OR = 4.0); Thyroid Stimulating Hormone 0.634 uIU/mL (0.465-4.680)
== END 2024-09-28 07:50 | disposition home or self-care (01) ==
LOC: ANHLAB 07:50
PROVIDERS: PCP Family Medicine; Visit Provider Family Medicine
DX: Z00.00 Encounter for general adult medical examination without abnormal findings (principal); E78.5 Hyperlipidemia, unspecified; R53.83 Other fatigue; G47.33 Obstructive sleep apnea (adult) (pediatric); R20.2 Paresthesia of skin; E66.9 Obesity, unspecified; Z79.899 Other long term (current) drug therapy; Z12.5 Encounter for screening for malignant neoplasm of prostate
CPT/HCPCS: 36415; 80053; 80061; 82172; 82306; 84153; 84443; 85025; G0103